=== PATIENT | female | born 1980 | race African-American/Black ===

== ENCOUNTER 2018-12-31 20:55 | Emergency (ER) | payer OTHER ==
[2018-12-31 21:09] VITALS: BMI 27.4
--- NOTE | 2018-12-31 22:17 | PDOC ---
History of Present Illness - General Chief Complaint: Laceration Stated Complaint: LACERATION Time Seen by Provider: 12/31/18 22:04 History Source: Patient Exam Limitations: No Limitations - History of Present Illness Initial Comments: Pt was taking the trash out at work and cut her ankle on an unknown object in the garbage aroudn 8:15 PM. Called EMS and presented to the ED. She has unknown tetanus status (believed to be <10 years). Able to ambulate, denies sensory deficits. No known drug allergies. Denies history of diabetes or non-healing wounds. 12/31/18 22:32 12/31/18 22:38 Timing/Duration: reports: just prior to arrival Location: reports: extremities Past History - Past Medical History Allergies/Adverse Reactions: Allergies Allergy/AdvReac Type Severity Reaction Status Date / Time No Known Allergies Allergy Verified 12/31/18 21:09 Comment:: 12/31/18 22:35 Asthma, reports using albuterol inhaler approximately 2x per year. - Immunization History Tetanus Status: Unknown (Patient believes close to 10 years) - Suicide/Smoking/Psychosocial Hx Smoking History: Never smoked Have you smoked in the past 12 months: No Information on smoking cessation initiated: No Hx Alcohol Use: No Drug/Substance Use Hx: No Review of Systems - Review of Systems Able to Perform ROS?: Yes Is the patient limited German proficient: No Constitutional: No: Chills, Fever, Weakness Musculoskeletal: Yes: See HPI Integumentary: Yes: See HPI Neurological: Yes: See HPI *Physical Exam - Vital Signs Last Vital Signs Temp Pulse Resp BP Pulse Ox 98 F 75 20 115/72 100 12/31/18 20:55 12/31/18 20:55 12/31/18 20:55 12/31/18 20:55 12/31/18 20:55 - Physical Exam Comments: Gen: WDWN woman, apears stated age Ext: 2 inch superficial laceration on the right ankle (medial to lateral orientation). Non-erythematous, grossly appears clean. No discharge. Neuro: sensation preserved, ROM with 5/5 strength in right foot distal to injury. Pulses: PT and DP pulses both 2+ 12/31/18 22:21 12/31/18 22:23 General Appearance: Yes: Nourished, Appropriately Dressed. No: Apparent Distress Vascular Pulses: Dorsalis-Pedis (R): 2+, Doralis-Pedis (L): 2+ Musculoskeletal: negative: Decreased Range of Motion Extremity: positive: Normal Capillary Refill, Normal Inspection, Normal Range of Motion Neurologic: positive: Motor Strength 5/5. negative: Sensory Deficit Procedures - Laceration/Wound Repair Right Anterior Ankle Wound Length: 5.0 to 7.5 cm Wound Explored: clean Wound's Depth, Shape: superficial, linear Irrigated w/ Saline: Yes Betadine Prep: No Anesthesia: 1% Lidocaine Wound Repaired With: Sutures (4-0 nylon) Suture Size/Type: 4:0 Number of Sutures: 5 Layer Closure: No Sterile Dressing Applied: Yes (gauze / kerlex) Splint Applied: No Medical Decision Making - Medical Decision Making 38yo woman with pmh asthma well controlled with albuterol presenting 2 hours after cutting her ankle on an unknown object in a bag of trash. Last tetanus "less than ten years ago." Denies sensory deficits, able to ambulate well. Physical exam notable for 2inch horizontal laceration of minimal depth, normal pulses DP and PT, normal sensation and sensation. No known drug allergies. Reports only mild pain. Plan for bedside laceration repair. 12/31/18 22:24 *DC/Admit/Observation/Transfer Diagnosis at time of Disposition: Laceration - Discharge Dispostion Disposition: HOME Condition at time of disposition: Good Decision to Admit order: No - Referrals - Patient Instructions Printed Discharge Instructions: DI for Laceration Repair, DI for Suture Removal Additional Instructions: [address] in right lower leg. Return in 10-14 days for suture removal. Return precautions discussed, patient verbalized understanding. - Post Discharge Activity Forms/Work/School Notes: Back to Work
--- NOTE | 2018-12-31 23:13 | PDOC ---
Documentation entered by Srinivas Castaneda SCRIBE, acting as scribe for Gordon Hyde MD. Gordon Hyde MD: This documentation has been prepared by the Leonel milner Nirvannie, SCRIBE, under my direction and personally reviewed by me in its entirety. I confirm that the documentation accurately reflects all work, treatment, procedures, and medical decision making performed by me. Attending Attestation - Resident Resident Name: Demian Epstein - ED Attending Attestation I have performed the following: I have examined & evaluated the patient, The case was reviewed & discussed with the resident, I agree w/resident's findings & plan - HPI HPI: 12/31/18 22:39 The patient is a 38 year old female, with no significant past medical history, who presents to the emergency department with a laceration to the right ankle. As per patient, she was taking the trash out when the bag brushed against her leg and lacerating her right ankle (unaware of what cut her leg), prompting her arrival to the ED. She denies any change in strength or sensation. Allergies: NKDA - Physicial Exam PE: 01/01/19 00:29 Agree with exam as documented by resident - Medical Decision Making 01/01/19 00:29 Linear laceration or RLE sustained while taking out garbage, unknown source clean, irrigate, exam, primary closure tetanus prophylaxis return for wound eval and suture removal
[2018-12-31] MEDS ORDERED: TETANUS AND DIPHTHERIA TOXOID 0.5 ML DISP.SYRIN IM ONE (23:32)
[2019-01-01 01:02] VITALS: BP 138/72; PULSE 80; TEMP 98.5
== END 2019-01-01 01:02 | disposition home or self-care (01) ==
LOC: JER 20:55
PROC: 3E0234Z Introduction of Serum, Toxoid and Vaccine into Muscle, Percutaneous Approach (ICD-10-PCS; principal; 2018-12-31)
PROC: 0HQNXZZ Repair Left Foot Skin, External Approach (ICD-10-PCS; 2018-12-31)
DX: S91.011A Laceration without foreign body, right ankle, initial encounter (principal); W22.8XXA Striking against or struck by other objects, initial encounter; Y93.89 Activity, other specified; Y92.008 Other place in unspecified non-institutional (private) residence as the place of occurrence of the external cause
CPT/HCPCS: 99282-25